=== PATIENT | female | born 1970 | race Caucasian/White ===

== ENCOUNTER 2024-01-18 23:01 | Emergency (ER) | payer SELFPAY ==
[~2024-01-18] VITALS: Ht 160 cm; Wt 59.0 kg
[2024-01-18 23:09] VITALS: TEMP 98.8
[2024-01-19] MEDS ORDERED: METOCLOPRAMIDE HCL 10 MG/2 ML VIAL ONE (00:31)
[2024-01-19] MEDS: METOCLOPRAMIDE HCL 10 MG/2 ML VIAL IM ONE (00:35)
[2024-01-19 06:02] VITALS: BP 110/64; O2SAT 98
== END 2024-01-19 06:03 | disposition home or self-care (01) ==
LOC: ER 23:01
DX: S01.21XA Laceration without foreign body of nose, initial encounter (principal); F10.129 Alcohol abuse with intoxication, unspecified; Y90.9 Presence of alcohol in blood, level not specified; W18.30XA Fall on same level, unspecified, initial encounter; Y93.89 Activity, other specified; Y92.89 Other specified places as the place of occurrence of the external cause; Y99.8 Other external cause status
CPT/HCPCS: 99285; 70450; 70486; 72125; 96372; J2765